=== PATIENT | male | born 2000 | race Caucasian/White ===

== ENCOUNTER 2022-09-28 22:36 | Inpatient (IN) | payer OTHER, SELFPAY ==
[2022-09-28 22:37] VITALS: BMI 16.8
--- NOTE | 2022-09-28 22:43 | PCM.HP.STD ---
[facility] - General General Date of Admission: 09/28/22 Date of Service: 09/28/22 Chief Complaint: Desire for detoxification HPI Narrative ANICETO SHEPHERD, is a 22 M with a significant history of drug abuse who presents to the emergency department from outside hospital for drug detoxification. Of note patient uses fentanyl and cocaine. Fentanyl use: Reports using pressed pills, 1 every day. He snorts it. He began using 2 to 3 months ago. Last time he used was on the morning of the day of presentation. He reports withdrawal symptoms of feeling depressed and anxious. He snorts the fentanyl. Cocaine use: He reports starting about a month ago. He reports last time he used was about a week ago and in that week he used 2 times. He snorts the cocaine. Also he reports smoking marijuana. Patient was transferred from [facility] to [facility] for opioid detox. [facility] Medical History Anxiety Cocaine use Depression Opiate addiction Vapes nicotine containing substance Home Medications NK 09/28/22 [History Last Taken Unknown] Allergy/AdvReac Type Severity Reaction Status Date / Time Environmental Allergies: Allergy Other Verified 09/28/22 22:33 Uncoded [seasonal] Family History Other Drug abuse Social History Smoking Status: Current every day smoker tobacco type: e-cigarettes ROS ROS Narrative Pertinent positives and pertinent negatives as noted in HPI. All other systems were reviewed and are negative Vital Signs Vital Signs Vital Signs: Weight Weight: 50.3 kg Body Mass Index (BMI) 16.8 Physical Exam Narrative Physical exam: General: Well-nourished, well-developed. Head: Normocephalic, atraumatic, no tenderness Eyes: Vision is grossly intact. EOMI ENT, no trauma, moist mucous membranes, no rhinorrhea Neck: Nontender, No thyromegaly. CVS: Regular rate and rhythm. S1-S2 present. No murmur, gallop or rub. Respiratory : clear to auscultation bilaterally, chest wall nontender Abdomen: Soft, nontender, nondistended, normal bowel sounds, no masses : Deferred Back: Nontender, no CVA tenderness, no midline spinal tenderness, deformities, step-offs Extremities: Nontender full range of motion, no trauma Skin: Normal color, no trauma, abrasions Neuro: Alert, oriented, cranial nerves II through XII grossly intact. Psychiatry: Normal mood. Normal affect. Not depressed. Not anxious. Assessment & Plan Assessment/Plan (1) Desire for detoxification: (2) Cocaine abuse: (3) Protein calorie malnutrition: PLAN: Plan Opioid dependence and withdrawal Patient be started on Subutex and other adjunctive medications: Gabapentin as needed; dicyclomine as needed; Vistaril as needed; methocarbamol as needed; clonidine as needed; Imodium as needed; trazodone as needed and Zofran as needed. Monitor COWS and CINA score Cocaine abuse Counseled. Tobacco abuse Counseled Nicotine patch prescribed. Severe protein calorie malnutrition BMI of 16.9 kg per metered square. Weight loss. Dietitian consult. Ensure plus ordered. DVT prophylaxis Low risk Encourage to ambulate Charges/Coding Visit Charges Inpatient E&M: 15391 Init Hosp L2
[2022-09-28 22:45] VITALS: BP 109/66; PULSE 58; RESP 14; TEMP 37; O2SAT 100
[2022-09-29 05:25] VITALS: BP 103/74; PULSE 71; RESP 16; TEMP 37.2; O2SAT 97
[2022-09-29] MEDS: Gabapentin 300 MG Capsule PO (05:51)
--- NOTE | 2022-09-29 07:38 | PCM.PN.HOSP ---
Reason for Visit Reason for Visit: Diagnoses Unspecified protein-calorie malnutrition (09/28/22) Cocaine abuse, uncomplicated (09/28/22) Objective Data Objective Data Vital Signs: Vital Signs Temp Pulse Resp BP Pulse Ox O2 Del Method 99.0 F 71 16 103/74 97 Room Air 09/29/22 05:25 09/29/22 05:25 09/29/22 05:25 09/29/22 05:25 09/29/22 05:25 09/29/22 05:25 Oxygen Delivery Method Room Air Weight: 110 lb 14.28 oz Body Mass Index (BMI) 16.8 Physical Exam Narrative Seen and examined. Patient admitted with acute opioid withdrawal syndrome with history of chronic opioid use disorder, dependence. Patient not awake when I entered room but he woke up. Patient not able to keep himself awake and falling asleep. Denies IV needle use. Physical exam General: somnolent, drowsy and lethargic. HEENT: Atraumatic, PERRLA, EOMI, Normocephalic Oral: Oral mucosa dry. No Gingival or Mucosal Lesions/ Ulcerations Neck: Supple, No JVD, Negative Carotid Bruits Lungs: Air entry diminished in bilateral lung bases. No crepitation/rhonchi Cardiovascular: Regular rate, Regular Rhythm, Normal S1, Normal S2, No murmurs Abdomen: Bowel Sounds Present, Soft, Non Tender, Non-Distended : No renal angle tenderness. No suprapubic tenderness. Extremities: No edema, Capillary Refill Less than 3 Seconds Skin: No rashes, No breakdown Musculoskeletal: No Tenderness to Palpation of Joints or Extremities Neurological: Detailed neuro exam not obtainable. Psych/Mental Status: Flat affect. Assessment & Plan Assessment/Plan (1) Desire for detoxification: (2) Cocaine abuse: (3) Protein calorie malnutrition: PLAN: Plan 1. Acute opioid withdrawal syndrome with history of chronic opioid use disorder, dependence and tolerance: Patient is being admitted on MedSur floor. The patient is started on buprenorphine along with other adjunctive medications as needed for medical stabilization as per order set of opioid withdrawal syndrome.Patient also on trazodone, hydroxyzine, gabapentin as needed ordered. manager college consult. Monitor COWS and CINA score 2. Chronic cocaine use disorder. Patient counseled to quit. 3. Chronic tobacco abuse/smoking disorder Counseled to quit. Nicotine patch prescribed. 4. Severe protein calorie malnutrition BMI of 16.9 kg per metered square. Patient has significant weight loss. Boots And Shoes Supervisor consult. Ensure plus ordered. 5. DVT prophylaxis Low risk Encourage to ambulate Charges/Coding Visit Charges Inpatient E&M: 41256 Subs Hosp L2
[2022-09-29 08:00] VITALS: BP 118/60; PULSE 56; RESP 16; TEMP 37; O2SAT 98
[2022-09-29] MEDS: Ensure Plus High Protein 120 ML LIQUID PO (08:31)
[2022-09-29] MEDS: Buprenorphine HCl 2 MG TAB.SUBL SL ×3 (08:31→23:00)
[2022-09-29 12:00] VITALS: BP 101/49; PULSE 64; RESP 16; TEMP 37.1; O2SAT 100
--- NOTE | 2022-09-29 12:10 | NURSING ---
pt barely able to keep awake to get thru cina questions and assessment. scoring a 1 for body aches. dozes back off . assisted in ordering lunch for. no other needs at this time.
[2022-09-29] MEDS: Methocarbamol 750 MG Tablet 1500 MG PO ×2 (12:59→20:27)
[2022-09-29] MEDS: hydrOXYzine PAM 25 MG Capsule 50 MG PO (15:10)
--- NOTE | 2022-09-29 15:20 | CASEMGMT ---
Social Work Pt nurse Maia informed pt having a difficult time and asking when able to leave. SW in to pt room to speak with pt and offer support. Pt agreeable to talking. SW discussed with pt what concerns pt had. Pt explained missing family and girlfriend. SW validated pt feelings, discussed what pt thinks family would want pt to do. Pt struggled with answering, stared blankly at the wall. SW spoke with pt about family and why they are so important to pt. Pt opened up briefly but remained guarded in answers. SW inquired why pt began using substances. Pt stated it helped with my anxiety then shared has seen a therapist in the past but stopped going 4 months ago. SW asked pt about coping skills and pt again went to blank stare and silence. SW discussed simple options for coping such as deep breathing and music. At this time Aaron Castañeda entered the room. SW greeted Trenton Ray and exited the room to give pt some spiritual privacy with Trenton Ray. JOSE Tanner
--- NOTE | 2022-09-29 16:49 | CHAPLAIN ---
Type of Pastoral Visit _x__ Initial Visit ___ Follow-up Visit ___ On-call Visit ___ General Patient Visit ___ Spiritual Assessment ___ Family Conference ___ Bereavement ___ Rapid Response ___ Code Blue ___ Other (describe below) Pastoral Care Referral From _x__ Patient ___ Family _x__ Nurse ___ Physician ___ Petroleum Sampler ___ Admissions Recruiter ___ Other (describe below) Sacrament/Intervention _x__ Active listening ___ Anointing ___ Restorationist ___ Bereavement ___ Communion _x__ Courtney exploration ___ _x__ Life review _x__ Prayer ___ Reconciliation ___ Sacrament of Sick _x__ Supportive presence ___ Wedding ___ Other (describe below) Pastoral Comments RN called this freezer machine operator to stop for visit with this patient described as emotional, upset, and wanting to leave; entered room and the SW was there; SW excused herself at this time; this freezer machine operator sat at bedside and spoke of giving support to pt and to be there for him; pt is tearful and at times cried very hard; pt states that he didn't want everyone to know but now they do and this hurts Mom, grandma, and girlfriend; pt repeats that he misses my family and my girlfriend so much and I can't call them or talk to them; gave calm presence and affirmed feelings with permission to Just go ahead and cry, I'll wait; pt cries more; pt calms down and speaks more and gives some life review; pt has a job that he really likes; tried to make focus on the good things patient has in his life; affirmed patient to do the work necessary to overcome the drugs while he is young and while he has already started in the [employer] program; asked patient about courtney; pt states he does not have taoist but believes 'there is a higher power of some sort out there'; offered pt to allow higher power to help him too; offered to pray for patient and he welcomed that; pt is resting now and has become less emotional; offer to return tomorrow and patient agrees that would be welcomed; no other needs spoken at this time
[2022-09-29 17:49] VITALS: BP 112/62; PULSE 68; RESP 16; TEMP 36.8; O2SAT 98
[2022-09-29] MEDS: traZODone 100 MG Tablet PO (20:27)
[2022-09-29] MEDS: cloNIDine HCl 0.1 MG Tablet PO (20:27)
[2022-09-29 20:32] VITALS: BP 115/74; PULSE 73; RESP 18; TEMP 36.8; O2SAT 100
[2022-09-30 02:30] VITALS: BP 101/45; PULSE 56; RESP 16; TEMP 36.4; O2SAT 94
[2022-09-30] MEDS: Buprenorphine HCl 2 MG TAB.SUBL SL ×3 (06:52→23:42)
--- NOTE | 2022-09-30 09:12 | PCM.PN.HOSP ---
Reason for Visit Reason for Visit: Diagnoses Unspecified protein-calorie malnutrition (09/28/22) Cocaine abuse, uncomplicated (09/28/22) Subjective Subjective Follow-up for acute opioid withdrawal syndrome Objective Data Objective Data Vital Signs: Vital Signs Temp Pulse Resp BP Pulse Ox O2 Del Method 97.6 F L 56 L 16 101/45 L 94 Room Air 09/30/22 02:30 09/30/22 02:30 09/30/22 02:30 09/30/22 02:30 09/30/22 02:30 09/30/22 02:30 Oxygen Delivery Method Room Air Weight: 110 lb 14.28 oz Body Mass Index (BMI) 16.8 Intake & Output: Intake and Output for Last 24 Hours 09/28/22 09/29/22 09/30/22 23:59 23:59 23:59 Intake Total 730 / 730 120 / 120 Balance 730 / 730 120 / 120 Medical Nutrition Assessment Dietitian: Malnutrition Criteria Met Start: 09/29/22 12:55 Freq: Status: Active Protocol: Document 09/29/22 12:55 [facility] (Rec: 09/29/22 12:55 [facility] [id number]) Nutrition Malnutrition Evidence of Malnutrition Exists Yes Malnutrition (severe): Social/Behavioral/ Environmental Evidenced By Suboptimal Energy Intake ( Severe),Weight Loss (Severe) Clinical Problem Chronic Disease or Condition Related Malnutrition Etiology severe related to drug abuse and inadequate energy intake Signs/Symptoms as evidenced by 11.3% unintended wt loss x and po intake meeting <75% of est nutritional needs x <3 wks Status Active Problem Recommendation Dietitian Recommendations/Changes Will change diet to regular w/ snacks 3x/day as tolerated Will change ONS from w/ medpass to w/ meals per pt request. Physical Exam Narrative Seen and examined. Patient admitted with acute opioid withdrawal syndrome with history of chronic opioid use disorder, dependence. Patient is more wakeful today. Denies IV needle use. Denies hallucination, delusion or suicidal ideation. No flashback or nightmares. Physical exam General: somnolent, drowsy and lethargic. HEENT: Mild redness over nostrils and floor of nose. Atraumatic, PERRLA, EOMI, Normocephalic Oral: Oral mucosa moist. No Gingival or Mucosal Lesions/ Ulcerations Neck: Supple, No JVD, Negative Carotid Bruits Lungs: Air entry diminished in bilateral lung bases. No crepitation/rhonchi Cardiovascular: Regular rate, Regular Rhythm, Normal S1, Normal S2, No murmurs Abdomen: Bowel Sounds Present, Soft, Non Tender, Non-Distended : No renal angle tenderness. No suprapubic tenderness. Extremities: No edema, Capillary Refill Less than 3 Seconds Skin: No rashes, No breakdown Musculoskeletal: No Tenderness to Palpation of Joints or Extremities Neurological: Detailed neuro exam not obtainable. Psych/Mental Status: Flat affect. Assessment & Plan Assessment/Plan (1) Desire for detoxification: (2) Cocaine abuse: (3) Protein calorie malnutrition: PLAN: Plan 1. Acute opioid withdrawal syndrome with history of chronic opioid use disorder, dependence and tolerance: [facility] The patient is started on buprenorphine along with other adjunctive medications as needed for medical stabilization as per order set of opioid withdrawal syndrome.Patient also on trazodone, hydroxyzine, gabapentin as needed ordered. direct marketing manager consult. Monitor COWS and CINA score 5/2: Cina score is 5 2. Chronic cocaine use disorder. Patient counseled to quit. 3. Chronic tobacco abuse/smoking disorder Counseled to quit. Nicotine patch prescribed. 4. Severe protein calorie malnutrition BMI of 16.9 kg per metered square. Patient has significant weight loss. Director Of Food And Nutrition Services consult. Ensure plus ordered. 5. DVT prophylaxis Low risk Encourage to ambulate Charges/Coding Visit Charges Inpatient E&M: 26096 Subs Hosp L2
[2022-09-30 11:27] VITALS: BP 102/56; PULSE 66; RESP 17; TEMP 37.1; O2SAT 99
[2022-09-30] MEDS: Gabapentin 300 MG Capsule PO ×2 (11:42→21:45)
[2022-09-30] MEDS: Methocarbamol 750 MG Tablet 1500 MG PO ×2 (11:43→21:44)
--- NOTE | 2022-09-30 12:04 | ADDICTION ---
This comic writer met with PT to conduct ASAM, MSE, AUDIT, DUDIT assessments and to plan for d/c. PT A+Ox4 and participated actively. All assessments completed and placed in PT's chart. PT plans to f/u with [facility] for follow-up outpatient treatment services. He does not report a need for transport.
--- NOTE | 2022-09-30 15:42 | CHAPLAIN ---
Type of Pastoral Visit ___ Initial Visit _x__ Follow-up Visit ___ On-call Visit ___ General Patient Visit ___ Spiritual Assessment ___ Family Conference ___ Bereavement ___ Rapid Response ___ Code Blue ___ Other (describe below) Pastoral Care Referral From _x__ Patient ___ Family ___ Nurse ___ Physician ___ Hospital Social Worker ___ Fuel Quality Tech ___ Other (describe below) Sacrament/Intervention _x__ Active listening ___ Anointing ___ Anabaptism ___ Bereavement ___ Communion ___ Courtney exploration ___ ___ Life review ___ Prayer ___ Reconciliation ___ Sacrament of Sick _x__ Supportive presence ___ Wedding ___ Other (describe below) Pastoral Comments brief follow up visit as requested by this patient; pt is watching TV; pt states he is still anxious to go home and see his family; pt acknowledges that he just has to get through the night; pt expresses thanks for the visit but has no new needs or desires for anything else
[2022-09-30] MEDS: Dicyclomine 10 MG Capsule 20 MG PO (16:29)
[2022-09-30] MEDS: hydrOXYzine PAM 25 MG Capsule 50 MG PO (16:29)
[2022-09-30 16:30] VITALS: BP 113/68; PULSE 68; RESP 17; TEMP 37.2; O2SAT 100
[2022-09-30 21:38] VITALS: BP 111/64; PULSE 61; RESP 18; TEMP 37.1; O2SAT 99
[2022-09-30] MEDS: traZODone 100 MG Tablet PO (21:45)
[2022-10-01 05:00] VITALS: BP 93/52; PULSE 60; RESP 18; TEMP 36.6; O2SAT 96
--- NOTE | 2022-10-01 07:17 | PCM.DC ---
Discharge Instructions Diet Discharge Diet: No restrictions Activity Discharge Activity: Return to Normal Activity Weight Bearing Status: Weight bearing as tolerated Dressing / Incision Call your doctor if you observe: Fever of 101 or Higher, Coldness, Increased Pain, Numbness or Tingling, Change in Color, Inability to urinate, Inability to have a bowel movement, Shortness of breath, Dizziness, Fainting spells, Swelling in the ankles, Chest pain, Prolonged hiccupping, Increased palpitations (irregular heartbeat) and Calf discomfort Follow Up Care When: IN 2 WEEKS Test Results: Test results from this visit will be discussed in further detail at your follow-up appointment, if applicable. Discharge Plan Admission Admit Date/Time: 09/28/22 22:36 Primary Reason for Your Visit: Acute opioid withdrawal syndrome Attending Provider: Ehsan Gomez Primary Care Provider: Richy Esquivel Consulting Providers: Yeni Mckay Discharge Orders/Prescriptions Prescriptions: No Action NK Referrals / Follow Up: Richy Esquivel MD [Primary Care Provider] - Within 2 Weeks Disposition Disposition (needs filled in before D/C Order can be placed): Home, Self Care
[2022-10-01] MEDS: Buprenorphine HCl 2 MG TAB.SUBL SL (10:44)
[2022-10-01 10:48] VITALS: BP 114/75; PULSE 65; RESP 16; TEMP 36.7; O2SAT 99
--- NOTE | 2022-10-01 11:51 | DS.PCM_ITS ---
Providers Date of Admission: 09/28/22 Date of Discharge: 10/01/22 Primary Care Physician: Dr. Richy Esquivel MD Reason For Visit: OPIATE DETOX Diagnosis Discharge Diagnosis (1) Desire for detoxification: Status: Acute (2) Cocaine abuse: Status: Acute Code(s): F14.10 - Cocaine abuse, uncomplicated (3) Protein calorie malnutrition: Status: Acute Code(s): E46 - Unspecified protein-calorie malnutrition Plan Patient was admitted with acute opioid withdrawal syndrome. He snorts fentanyl and cocaine. 1. Acute opioid withdrawal syndrome with history of chronic opioid use disord er, dependence and tolerance: Patient is being admitted on MedSurg floor. The patient is started on buprenorphine along with other adjunctive medications as needed for medical stabilization as per order set of opioid withdrawal syndrome.Patient also on trazodone, hydroxyzine, gabapentin as needed ordered. finance business manager consult. Monitor COWS and CINA score 5/2: Cina score is 5 5/3: Cina score is 4. Tremors not visible. Barely perceptible sweating. No nasal congestion. Advised to follow-up outpatient substance use rehab with [facility]. 2. Chronic cocaine use disorder. Patient counseled to quit. 3. Chronic tobacco abuse/smoking disorder Counseled to quit. Nicotine patch prescribed. 4. Severe protein calorie malnutrition BMI of 16.9 kg per metered square. Patient has significant weight loss. Bricklayer Helper consult. Ensure plus ordered. 5. DVT prophylaxis Low risk Encourage to ambulate Discharge medication reconciliation done. Discharge follow-up instructions completed. Discharge process discussed with the patient and all questions were answered to patient's satisfaction. Total time spent, exact 35 minutes on discharge meds reconciliation, examination, coordination of care with nurses and ancillary staff, review of imaging and blood test and discussion with the patient on follow-up instructions. Medications at Discharge Home Medications NK 09/28/22 Physical Exam Narrative Seen and examined. Patient is awake today. Denies IV needle use. Denies hallucination, delusion or suicidal ideation. No flashback or nightmares. Physical exam General: Awake, alert oriented x3. HEENT: Mild redness over nostrils and floor of nose. Atraumatic, PERRLA, EOMI, Normocephalic Oral: Oral mucosa moist. No Gingival or Mucosal Lesions/ Ulcerations Neck: Supple, No JVD, Negative Carotid Bruits Lungs: Air entry diminished in bilateral lung bases. No crepitation/rhonchi Cardiovascular: Regular rate, Regular Rhythm, Normal S1, Normal S2, No murmurs Abdomen: Bowel Sounds Present, Soft, Non Tender, Non-Distended : No renal angle tenderness. No suprapubic tenderness. Extremities: No edema, Capillary Refill Less than 3 Seconds Skin: No rashes, No breakdown Musculoskeletal: No Tenderness to Palpation of Joints or Extremities Neurological: Detailed neuro exam not obtainable. Psych/Mental Status: Flat affect. Medical Records Data Medical Nutrition Assessment Dietitian: Malnutrition Criteria Met Start: 09/29/22 12:55 Freq: Status: Active Protocol: Document 09/29/22 12:55 [facility] (Rec: 09/29/22 12:55 [facility] [id number]) Nutrition Malnutrition Evidence of Malnutrition Exists Yes Malnutrition (severe): Social/Behavioral/ Environmental Evidenced By Suboptimal Energy Intake ( Severe),Weight Loss (Severe) Clinical Problem Chronic Disease or Condition Related Malnutrition Etiology severe related to drug abuse and inadequate energy intake Signs/Symptoms as evidenced by 11.3% unintended wt loss x and po intake meeting <75% of est nutritional needs x <3 wks Status Active Problem Recommendation Dietitian Recommendations/Changes Will change diet to regular w/ snacks 3x/day as tolerated Will change ONS from w/ medpass to w/ meals per pt request. Weight / BMI Weight Weight: 110 lb 14.28 oz Body Mass Index (BMI) 16.8 D/C Instructions Discharge Diet: No restrictions Weight Bearing Status: Weight bearing as tolerated Call your doctor if you observe: Fever of 101 or Higher, Coldness, Increased Pain, Numbness or Tingling, Change in Color, Inability to urinate, Inability to have a bowel movement, Shortness of breath, Dizziness, Fainting spells, Swelling in the ankles, Chest pain, Prolonged hiccupping, Increased palpitations (irregular heartbeat) and Calf discomfort When: IN 2 WEEKS Meaningful Use Info Meaningful Use Diagnoses (Choose all that apply): None applicable Discharge Plan Admission Admit Date/Time: 09/28/22 22:36 Primary Reason for Your Visit: Acute opioid withdrawal syndrome Attending Provider: Ehsan Gomez Primary Care Provider: Richy Esquivel Consulting Providers: Yeni Mckay Discharge Orders/Prescriptions Prescriptions: No Action NK Referrals / Follow Up: Richy Esquivel MD [Primary Care Provider] - Within 2 Weeks Disposition Disposition (needs filled in before D/C Order can be placed): Home, Self Care Charges/Coding Visit Charges Inpatient E&M: 80465 Disch Hosp >30min
== END 2022-10-01 13:23 | disposition home or self-care (01) | DRG 896 ==
PROVIDERS: Admitting Provider Internal Medicine; Visit Provider Internal Medicine
DX: F11.23 Opioid dependence with withdrawal (principal); E43 Unspecified severe protein-calorie malnutrition; Z68.1 Body mass index [BMI] 19.9 or less, adult; F14.10 Cocaine abuse, uncomplicated; F17.210 Nicotine dependence, cigarettes, uncomplicated; R63.4 Abnormal weight loss
CPT/HCPCS: 97802; 99406